=== PATIENT | female | born 1960 | race Caucasian/White ===

== ENCOUNTER 2016-12-04 11:45 | Inpatient (IN) | payer MEDICARE, OTHER ==
--- NOTE | 2016-12-04 12:36 | History and Physical Report ---
History of Present Illnes - History of Present Illness Reason for Visit: gait disturbance s/p TKR History of Present Illness: 56yo white female with end-stage OA requiring a TKR on the left side. Surgery was performed without any intraoperative or post operative complications. patient has been up ambulating with some difficulties with a walker. Patient transferred to this institution for further rehab services. Patient states that her chronic medical problems are stable at this time. - Past Medical History Cardiac: Other (Obesity). denies: AFIB, CAD, CHF COMPUTER MECHANIC: Migraine Gastrointestinal: GERD Heme/Onc: Anemia NOS (postoperative) Psych: Depression Musculoskeletal: Chronic low back pain, Osteoarthritis Rheumatologic: Fibromyalgia Grav: 0 - Past Surgical History Past Surgical History: Cholecystectomy, Total Hip Replacement (left), Total Knee Replacement (bialteral), Tonsillectomy, Other (R carpal tunnel release, R thumb release, Back surgery, Gastric bypass, Bialateral ankle surgery) - Past Social History Smoke: No, Quit (2005) Occupation: Retired nurse. She is , her Sudeep two years ago. Alcohol: Rare Drugs: None Lives: Alone (parents live here in [place]) Domestic Violence: Negative - Health Maintenance Health Maintenance: Cholesterol, Influenza Vaccine, Pneumococcal Vaccine, Pap Smear, Mammogram. denies: Colonoscopy Influenza Vaccine: Current for this Influenza Season Pneumonia Vaccine: Yes Resuscitation Status: FULL CODE Review of Systems - Review of Systems Constitutional: negative: Fever, Chills, Sweats Eyes: negative: pain, vision change ENT: negative: Ear Pain, Ear Discharge, Nose Pain, Nose Discharge, Nose Congestion, Mouth Pain, Throat Pain Respiratory: negative: Cough, Dry, Shortness of Breath, Hemoptysis, SOB with Excertion, Pleuritic Pain Cardiovascular: negative: Chest Pain, Palpitations, Orthopnea Gastrointestinal: Other (last BM yesterday). negative: Nausea, Vomiting, Abdominal Pain, Diarrhea, Constipation, Melena, Hematochezia Genitourinary: negative: Dysuria, Frequency, Incontinence Musculoskeletal: Back Pain. negative: Neck Pain, Shoulder Pain Skin: negative: Rash, Lesions Neurological: negative: Weakness, Numbness, Incoordination, Change in Speech - Medications/Allergies Allergies/Adverse Reactions: Allergies Allergy/AdvReac Type Severity Reaction Status Date / Time carisoprodol [From Soma] Allergy Intermediate Hives Verified 10/01/13 16:50 morphine Allergy Intermediate Hives Verified 10/01/13 16:50 Penicillins Allergy Intermediate Hives Verified 10/01/13 16:50 Home Medications: Home Medications Calcium Citrate [Calcitrate] 200 mg PO TID 12/04/16 [place]-3S/Dha/Epa/Fish Oil [Fish Oil 1,200 mg Softgel] 1 each PO D 12/04/16 Sumatriptan Succinate [Imitrex] 100 mg PO DIRECTED PRN 12/04/16 Exam - Exam General: Alert, Oriented to Person, Oriented to Place, Oriented to Time, Cooperative, No acute distress HEENT: Atraumatic, PERRLA, EOMI, Mouth Mucous membr. moist/[place], Nose Mucous membr. moist/[place], Hearing Grossly Normal Neck: Normal Range of Motion Carotids: WNL Thyroid: WNL Lungs: Clear to auscultation, Normal air movement, Speaks full Sentences Cardiovascular: Regular rate, Normal S1, Normal S2, No murmurs Abdomen: Normal bowel sounds, Soft, No tenderness, No hepatospenomegaly, No masses Integumentary: Normal, [place], Warm, Dry Extremities: No clubbing, No cyanosis, No edema, Normal pulses, No tenderness/ swelling Neurological: Normal gait, Normal speech, Strength Equal Bilat, Normal tone, Sensation intact, Cranial nerves 3-12 NL, Reflexes 2+ Psych/Mental Status: Mental status NL, Mood NL, Appropriate Affect, Intact Judgment Assessment/Plan - Assessment/Plan (1) Gait disturbance Status: Acute Current Visit: Yes Plan: Follow-up apptment with Dr Morin DECEMBER 29 - 1299 (2) S/P TKR (total knee replacement) Status: Acute Current Visit: Yes Assessment: Continue with present pain medications, will try to start to wean off narcotics (3) Migraine headache Status: Chronic Current Visit: Yes Qualifiers: Migraine type: with aura Intractability: not intractable Assessment: continue home med Imitrix (4) Chronic GERD Status: Chronic Current Visit: Yes Assessment: continue with PPI (5) Depression Status: Chronic Current Visit: Yes Qualifiers: Depression Type: reactive depression Qualified Code(s): F32.9 - Major depressive disorder, single episode, unspecified Assessment: Continue with Effexor VTE Assessment - RISK FACTOR SCORE VTE RISK FACTOR SCORES: AGE 40-60 YEARS, ELECTIVE KNEE OR HIP ARTHROPLASTY - RISK VTE MODERATE RISK: SCORE OF 2 (RISK PROXIMAL DVT 2-4%) PROPHYAXIS NEEDED ( Aspirin therapy)
[2016-12-04] MEDS ORDERED: SUMAtriptan SUCCINATE 25 MG TABLET PO PRN (12:44)
[2016-12-04] MEDS ORDERED: MAGNESIUM HYDROXIDE 400 MG/5 ML 30ML UDC PO PRN (12:53)
[2016-12-04] MEDS ORDERED: HYDROcodone /APAP 10/325 1 EACH TABLET PO ONE ×2 (13:00→17:43)
[2016-12-04] MEDS ORDERED: FUROSEMIDE 40 MG TABLET PO PRN (13:00)
[2016-12-04] MEDS: HYDROcodone /APAP 10/325 1 EACH TABLET PO SCH ×2 (13:05→18:09)
[2016-12-04 16:43] VITALS: BMI 47.7
[2016-12-04] MEDS: CYCLOBENZAPRINE HCL 5 MG TABLET PO SCH (20:12)
[2016-12-04] MEDS: ASPIRIN 325 MG TABLET PO SCH (20:12)
[2016-12-04] MEDS: TOPIRAMATE 50 MG TABLET PO SCH (20:12)
[2016-12-04] MEDS: traMADol HCL 50 MG TABLET PO PRN (20:15)
[2016-12-04] MEDS: PREGABALIN 50 MG CAPSULE PO SCH (20:15)
[2016-12-05] MEDS ORDERED: HYDROcodone /APAP 10/325 1 EACH TABLET PO ONE ×2 (00:18→00:39)
[2016-12-05] MEDS: HYDROcodone /APAP 10/325 1 EACH TABLET PO SCH ×2 (00:20→06:15)
[2016-12-05] MEDS ORDERED: VENLAFAXINE HCL 37.5 MG CAP.ER.24H PO ONE (00:38)
[2016-12-05] MEDS: traMADol HCL 50 MG TABLET PO PRN (03:42)
[2016-12-05] MEDS: PANTOPRAZOLE SODIUM 40 MG TABLET PO SCH (06:15)
[2016-12-05] MEDS: oxyCODONE/ACETAMINOPHEN 5/325 TABLET PO SCH ×4 (08:13→20:27)
[2016-12-05] MEDS ORDERED: MULTIVITAMIN 1 EACH TABLET PO SCH (09:00)
[2016-12-05] MEDS ORDERED: VENLAFAXINE HCL 37.5 MG CAP.ER.24H PO SCH (09:00)
[2016-12-05] MEDS: DOCUSATE SODIUM 100 MG CAPSULE PO SCH (09:01)
[2016-12-05] MEDS: ASPIRIN 325 MG TABLET PO SCH ×2 (09:01→20:27)
[2016-12-05] MEDS: VENLAFAXINE HCL 37.5 MG TAB PO SCH (09:04)
[2016-12-05] MEDS: TOPIRAMATE 50 MG TABLET PO SCH ×2 (09:05→20:27)
[2016-12-05] MEDS: PREGABALIN 50 MG CAPSULE PO SCH ×2 (09:05→20:28)
[2016-12-05] MEDS: CALCIUM CARB 500 MG TAB.CHEW PO SCH (09:07)
[2016-12-05] MEDS: CYCLOBENZAPRINE HCL 5 MG TABLET PO SCH (20:27)
[2016-12-06] MEDS ORDERED: VENLAFAXINE HCL 37.5 MG CAP.ER.24H PO ONE (03:49)
[2016-12-06] MEDS: traMADol HCL 50 MG TABLET PO PRN (04:30)
[2016-12-06] MEDS: PANTOPRAZOLE SODIUM 40 MG TABLET PO SCH (06:43)
[2016-12-06] MEDS: oxyCODONE/ACETAMINOPHEN 5/325 TABLET PO SCH ×4 (08:54→20:58)
[2016-12-06] MEDS: TOPIRAMATE 50 MG TABLET PO SCH ×2 (09:17→20:58)
[2016-12-06] MEDS: DOCUSATE SODIUM 100 MG CAPSULE PO SCH (09:17)
[2016-12-06] MEDS: ASPIRIN 325 MG TABLET PO SCH ×2 (09:17→20:57)
[2016-12-06] MEDS: CALCIUM CARB 500 MG TAB.CHEW PO SCH (09:18)
[2016-12-06] MEDS: VENLAFAXINE HCL 37.5 MG TAB PO SCH (09:19)
[2016-12-06] MEDS: PREGABALIN 50 MG CAPSULE PO SCH ×2 (09:20→20:58)
[2016-12-06] MEDS: CYCLOBENZAPRINE HCL 5 MG TABLET PO SCH (20:57)
[2016-12-07] MEDS: traMADol HCL 50 MG TABLET PO PRN ×2 (03:39→11:32)
[2016-12-07] MEDS: PANTOPRAZOLE SODIUM 40 MG TABLET PO SCH (05:28)
[2016-12-07] MEDS: oxyCODONE/ACETAMINOPHEN 5/325 TABLET PO SCH ×4 (08:40→20:47)
[2016-12-07] MEDS: PREGABALIN 50 MG CAPSULE PO SCH ×2 (08:41→20:45)
[2016-12-07] MEDS: DOCUSATE SODIUM 100 MG CAPSULE PO SCH (08:42)
[2016-12-07] MEDS: TOPIRAMATE 50 MG TABLET PO SCH ×2 (08:42→20:46)
[2016-12-07] MEDS: ASPIRIN 325 MG TABLET PO SCH ×2 (08:42→20:44)
[2016-12-07] MEDS ORDERED: VENLAFAXINE HCL 37.5 MG CAP.ER.24H PO ONE (08:43)
[2016-12-07] MEDS: VENLAFAXINE HCL 37.5 MG TAB PO SCH (08:44)
[2016-12-07] MEDS: CALCIUM CARB 500 MG TAB.CHEW PO SCH (08:47)
[2016-12-07] MEDS: CYCLOBENZAPRINE HCL 5 MG TABLET PO SCH (20:45)
[2016-12-08] MEDS: traMADol HCL 50 MG TABLET PO PRN ×2 (01:44→11:56)
[2016-12-08] MEDS: PANTOPRAZOLE SODIUM 40 MG TABLET PO SCH (05:56)
[2016-12-08] MEDS: ASPIRIN 325 MG TABLET PO SCH ×2 (08:25→19:42)
[2016-12-08] MEDS: oxyCODONE/ACETAMINOPHEN 5/325 TABLET PO SCH ×4 (08:25→19:43)
[2016-12-08] MEDS: DOCUSATE SODIUM 100 MG CAPSULE PO SCH (08:25)
[2016-12-08] MEDS: TOPIRAMATE 50 MG TABLET PO SCH ×2 (08:26→19:42)
[2016-12-08] MEDS: CALCIUM CARB 500 MG TAB.CHEW PO SCH (08:27)
[2016-12-08] MEDS ORDERED: VENLAFAXINE HCL 37.5 MG CAP.ER.24H PO ONE (08:29)
[2016-12-08] MEDS: PREGABALIN 50 MG CAPSULE PO SCH ×2 (08:31→19:42)
[2016-12-08] MEDS: VENLAFAXINE HCL 37.5 MG TAB PO SCH (08:32)
--- NOTE | 2016-12-08 13:11 | Inpatient Progress Note ---
Subjective - Required Recertification Statement I anticipate X number of days because-include discharge plan: 7 - Review of Systems Events since last encounter: Radha is doing well. She is participating in therapy and is making progress. She is full weight bearing. She is wearing the polar ice and it is keeping swelling down. General: Denies: Chills HEENT: Denies: Head Aches Pulmonary: Denies: Dyspnea Cardiovascular: Denies: Chest Pain Gastrointestinal: Denies: Nausea, Vomiting Genitourinary: Denies: Dysuria Musculoskeletal: Leg Pain (slowly improving) Neurological: Denies: Confusion Objective - Exam Vitals and I&O: Vital Signs Temp 100.4 F H 12/07/16 21:00 Pulse 105 H 12/07/16 21:00 Resp 22 12/07/16 21:00 BP 147/58 12/07/16 09:00 Pulse Ox 98 12/07/16 21:00 Intake & Output 12/07/16 12/08/16 12/08/16 23:59 11:59 23:59 Intake Total 680 380 Balance 680 380 Intake: Oral 680 380 Other: Voiding Method Toilet # Voids 2 # Bowel Movements 0 General: Alert, Oriented to Person, Oriented to Place, Oriented to Time, Cooperative, Mild distress HEENT: Atraumatic, PERRLA Neck: Supple, No JVD Lungs: Clear to auscultation, Normal air movement, Speaks full Sentences Cardiovascular: Regular rate, Normal S1, Normal S2 Abdomen: Normal bowel sounds, Soft Extremities: Other (left anterior knee incision is well approximated with nilesh) Skin: Normal Neurological: Normal speech. No: Normal gait Psych/Mental Status: Mental status NL, Mood NL, Appropriate Affect Assessment/Plan - Assessment/Plan (1) S/P TKR (total knee replacement) Status: Acute Current Visit: Yes Qualifiers: Laterality: left Qualified Code(s): Z96.652 - Presence of left artificial knee joint Assessment: With routine course of healing Plan: Continue therapy. F/U in two weeks with Dr. Morin, and he would like to take the nilesh out himself
[2016-12-08] MEDS: CYCLOBENZAPRINE HCL 5 MG TABLET PO SCH (19:41)
[2016-12-09] MEDS: traMADol HCL 50 MG TABLET PO PRN ×3 (02:43→18:18)
[2016-12-09] MEDS: PANTOPRAZOLE SODIUM 40 MG TABLET PO SCH (06:11)
[2016-12-09] MEDS: oxyCODONE/ACETAMINOPHEN 5/325 TABLET PO SCH ×4 (08:22→20:43)
[2016-12-09] MEDS: TOPIRAMATE 50 MG TABLET PO SCH ×2 (08:23→20:43)
[2016-12-09] MEDS: ASPIRIN 325 MG TABLET PO SCH ×2 (08:23→20:43)
[2016-12-09] MEDS: DOCUSATE SODIUM 100 MG CAPSULE PO SCH (08:23)
[2016-12-09] MEDS: CALCIUM CARB 500 MG TAB.CHEW PO SCH (08:25)
[2016-12-09] MEDS: PREGABALIN 50 MG CAPSULE PO SCH ×2 (08:28→20:43)
[2016-12-09] MEDS ORDERED: VENLAFAXINE HCL 37.5 MG CAP.ER.24H PO ONE (09:00)
[2016-12-09] MEDS: VENLAFAXINE HCL 37.5 MG TAB PO SCH (09:00)
[2016-12-09] MEDS: CYCLOBENZAPRINE HCL 5 MG TABLET PO SCH (20:43)
[2016-12-10] MEDS: traMADol HCL 50 MG TABLET PO PRN ×2 (02:57→10:44)
[2016-12-10] MEDS: PANTOPRAZOLE SODIUM 40 MG TABLET PO SCH (06:36)
[2016-12-10] MEDS: oxyCODONE/ACETAMINOPHEN 5/325 TABLET PO SCH ×4 (08:08→20:09)
[2016-12-10] MEDS: PREGABALIN 50 MG CAPSULE PO SCH ×2 (08:08→20:08)
[2016-12-10] MEDS: DOCUSATE SODIUM 100 MG CAPSULE PO SCH (08:08)
[2016-12-10] MEDS: TOPIRAMATE 50 MG TABLET PO SCH ×2 (08:08→20:09)
[2016-12-10] MEDS: ASPIRIN 325 MG TABLET PO SCH ×2 (08:08→20:08)
[2016-12-10] MEDS: CALCIUM CARB 500 MG TAB.CHEW PO SCH (08:09)
[2016-12-10] MEDS ORDERED: VENLAFAXINE HCL 37.5 MG CAP.ER.24H PO ONE (08:10)
[2016-12-10] MEDS: VENLAFAXINE HCL 37.5 MG TAB PO SCH (08:11)
[2016-12-10] MEDS: CYCLOBENZAPRINE HCL 5 MG TABLET PO SCH (20:08)
[2016-12-11] MEDS: traMADol HCL 50 MG TABLET PO PRN ×2 (02:50→06:08)
[2016-12-11] MEDS: PANTOPRAZOLE SODIUM 40 MG TABLET PO SCH (06:06)
[2016-12-11] MEDS ORDERED: VENLAFAXINE HCL 37.5 MG CAP.ER.24H PO ONE (08:07)
[2016-12-11] MEDS: ASPIRIN 325 MG TABLET PO SCH ×2 (08:42→21:07)
[2016-12-11] MEDS: oxyCODONE/ACETAMINOPHEN 5/325 TABLET PO SCH ×4 (08:43→21:09)
[2016-12-11] MEDS: PREGABALIN 50 MG CAPSULE PO SCH ×2 (08:43→21:07)
[2016-12-11] MEDS: TOPIRAMATE 50 MG TABLET PO SCH ×2 (08:43→21:08)
[2016-12-11] MEDS: VENLAFAXINE HCL 37.5 MG TAB PO SCH (08:43)
[2016-12-11] MEDS: DOCUSATE SODIUM 100 MG CAPSULE PO SCH (08:43)
[2016-12-11] MEDS: CALCIUM CARB 500 MG TAB.CHEW PO SCH (08:44)
[2016-12-11] MEDS: CYCLOBENZAPRINE HCL 5 MG TABLET PO SCH (21:07)
[2016-12-12] MEDS: traMADol HCL 50 MG TABLET PO PRN (02:20)
[2016-12-12] MEDS: PANTOPRAZOLE SODIUM 40 MG TABLET PO SCH (05:48)
[2016-12-12] MEDS: ASPIRIN 325 MG TABLET PO SCH (08:18)
[2016-12-12] MEDS: DOCUSATE SODIUM 100 MG CAPSULE PO SCH (08:18)
[2016-12-12] MEDS: PREGABALIN 50 MG CAPSULE PO SCH (08:19)
[2016-12-12] MEDS: oxyCODONE/ACETAMINOPHEN 5/325 TABLET PO SCH ×2 (08:19→12:46)
[2016-12-12] MEDS: CALCIUM CARB 500 MG TAB.CHEW PO SCH (08:20)
[2016-12-12] MEDS: TOPIRAMATE 50 MG TABLET PO SCH (08:20)
[2016-12-12] MEDS ORDERED: VENLAFAXINE HCL 37.5 MG CAP.ER.24H PO ONE (08:22)
[2016-12-12] MEDS: VENLAFAXINE HCL 37.5 MG TAB PO SCH (08:24)
[2016-12-12 13:54] VITALS: BP 140/78
--- NOTE | 2016-12-13 12:04 | Discharge Summary ---
DATE OF ADMISSION: December 04, 2016 DATE OF DISCHARGE: December 12, 2016 DIAGNOSES ON THIS HOSPITALIZATION: 1. Total knee replacement. 2. Obesity. 3. Gait disturbance. 4. Chronic gastroesophageal reflux disease. 5. Depression. SUMMARIZATION OF ADMISSION HISTORY AND PHYSICAL: This is a 56-year-old white female with end-stage osteoarthritis requiring a left total knee replacement and surgery was performed in [place] without any complications. She came to our facility for rehab services. HOSPITAL COURSE: She was admitted. She did remarkably well with therapy. She was discharged to home then with continuation of all of her home medications. CONDITION ON DISCHARGE: Discharged to home in improved condition. DISCHARGE INSTRUCTIONS: Follow up with Orthopedics as previously scheduled. ELVIRA
[2016-12-19] MEDS ORDERED: ASPIRIN 325 MG TABLET PO SCH (09:00)
== END 2016-12-12 13:45 | disposition home or self-care (01) | DRG 93 ==
LOC: SOUTH 11:45
PROVIDERS: ADMIT Family Medicine; ATTEND Family Medicine
DX: R26.9 Unspecified abnormalities of gait and mobility (principal); Z96.652 Presence of left artificial knee joint; E66.9 Obesity, unspecified; K21.9 Gastro-esophageal reflux disease without esophagitis; F32.9 Major depressive disorder, single episode, unspecified
CPT/HCPCS: 97110; 97116; 97161; 97165; 97530; 97535; A9270; J3490

== ENCOUNTER 2018-08-09 10:33 | Outpatient (CLI) | payer MEDICARE, OTHER ==
[2018-08-09 11:29] LABS: MEAN CORPUSCULAR HEMOGLOBIN 25.9 pg (28.0-34.0)
[2018-08-09 11:30] LABS: BASOPHILS % 0.2 (0.0-1.5); EOSINOPHILS % 2.4 % (0.0-6.8); MONOCYTES % 7.9 % (0.0-11.0); NEUTROPHILS # 4.8 # k/uL (1.4-7.7)
[2018-08-09 11:54] LABS: eGFR (Non-African) > 60
== END 2018-08-09 10:35 ==
LOC: LAB 10:33
PROVIDERS: ATTEND Family Medicine
DX: M81.0 Age-related osteoporosis without current pathological fracture (principal); E55.9 Vitamin D deficiency, unspecified; R26.9 Unspecified abnormalities of gait and mobility; K90.89 Other intestinal malabsorption; Z51.81 Encounter for therapeutic drug level monitoring
CPT/HCPCS: 36415; 80053; 80061; 82306; 85025

== ENCOUNTER 2018-09-27 13:20 | Outpatient (CLI) | payer MEDICARE, OTHER ==
--- NOTE | 2018-09-27 14:10 | Diagnostic Imaging Report ---
NEISHA BOO [facility] [address] [facility].[address] [address] Report Submission Date: Sep 27, 2018 2:02:20 PM COATING ENGINEER Patient Study Name: LEANDRA FRANK Date: Sep 27, 2018 1:27:26 PM COATING ENGINEER Modality Type: DX Gender: F Description: RT HIP 2VIEW COMPLETE : 58 Institution: [facility] Physician: NEISHA BOO Examination: Plain film pelvis/right hip History: Recent fall, pt states right pain, ischium pain, previous bi lat hip replacements and lumbar lami Comparison exams: None provided Findings: 3 views of the pelvis and right hip demonstrates bilateral hip replacement. Generalized osteopenia. No fracture no dislocation. Lumbar spine fixation hardware and degenerative changes. No gross soft tissue abnormality. Impression: Bilateral hip and lumbar postsurgical changes. Osteopenia and degenerative changes. No displaced fracture lucency. Electronically signed on Sep 27, 2018 2:02:20 PM COATING ENGINEER by: Joshua FELIX
== END 2018-09-27 13:22 ==
LOC: RAD 13:20
PROVIDERS: ATTEND Nurse Practitioner Family
DX: M25.551 Pain in right hip (principal); W19.XXXA Unspecified fall, initial encounter; M85.851 Other specified disorders of bone density and structure, right thigh
CPT/HCPCS: 73502

== ENCOUNTER 2018-10-09 07:56 | Day surgery (SDC) | payer OTHER ==
[2018-10-09] MEDS ORDERED: LACTATED RINGERS 1,000 ML IV.SOLN IV ONE (08:48)
[2018-10-09] MEDS ORDERED: PROPOFOL 200 MG/20 ML VIAL IV ONE (08:48)
--- NOTE | 2018-10-09 13:40 | GI Report ---
REFERRING PHYSICIAN: FIDELIA Lo NEWS LIBRARIAN: Nacho Sheehan MD PROCEDURE MEDICATION: Propofol as per anesthesia. INDICATIONS: Patient is a 58-year-old woman who is referred for her first colonoscopy from Dr. Graf's office. She has never had a previous colonoscopy. She does have a number of medical issues. She has had gastric bypass 5 years ago. She, at present, weighs 248 pounds and carries all that weight centrally. PROCEDURE PERFORMED: Colonoscopy. PROCEDURE: An Olympus video colonoscope was advanced to the rectum. Prep was fair. A very atonic redundant colon. It took 2 nurse compression and putting a biopsy forceps to help stiffen the scope, and multiple reduction of loops to finally reach the cecum. On slow withdrawal, the cecum, ascending colon, and transverse colon with no obvious intraluminal lesions noted, though a very atonic redundant colon. The descending colon and sigmoid, again, very atonic and redundant. No obvious intraluminal lesions noted. Retroflexion of the rectum was normal. Patient tolerated the procedure well. FINDINGS: A very atonic redundant colon. RECOMMENDATIONS: 1. Would add Benefiber daily and increase fiber in her diet. 2. She can take MiraLAX daily if needed. 3. Consider re-looking at her colon in 10 years, sooner if clinically indicated. cc: FIDELIA Lo [facility]
== END 2018-10-09 11:40 | disposition home or self-care (01) ==
LOC: OPSURG 07:56
PROVIDERS: ATTEND Internal Medicine Gastroenterology
DX: Z12.11 Encounter for screening for malignant neoplasm of colon (principal); K59.8 Other specified functional intestinal disorders
CPT/HCPCS: G0121; J2704; J7120; S1016

== ENCOUNTER 2018-11-14 15:47 | Outpatient (CLI) | payer OTHER ==
--- NOTE | 2018-11-14 16:27 | Diagnostic Imaging Report ---
TERRIE GAGNON [facility] [address] [facility] [address] [address] Report Submission Date: Nov 14, 2018 4:26:01 PM CDT Patient Study Name: LEANDRA FRANK Date: Nov 14, 2018 3:51:48 PM CDT Modality Type: DX Gender: F Description: FOOT 3 VIEWS OR MORE : 58 Institution: [facility] Physician: TERRIE GAGNON EXAMINATION: FOOT 3 VIEWS OR MORE HISTORY: LATERAL LEFT FOOT PAIN X 1 MONTH. NKI. (Hx) COMPARISON: None FINDINGS: No acute fracture or dislocation is identified. The bones are diffusely demineralized. Calcaneal spurs are noted. There is advanced midfoot osteoarthritis, particularly involving the talonavicular joint. The navicular bone appears somewhat collapsed. IMPRESSION: 1. Advanced midfoot osteoarthritis without acute fracture or dislocation identified. 2. Calcaneal spurs. Electronically signed on Nov 14, 2018 4:26:01 PM CDT by: Isai FELIX
== END 2018-11-14 15:50 ==
LOC: LAB 15:47
PROVIDERS: ATTEND Family Medicine
DX: M19.072 Primary osteoarthritis, left ankle and foot (principal); M77.32 Calcaneal spur, left foot; M79.672 Pain in left foot
CPT/HCPCS: 73630

== ENCOUNTER 2018-12-14 12:57 | Outpatient (CLI) | payer OTHER ==
--- NOTE | 2018-12-19 21:42 | OP Clinic Progress Note ---
SUBJECTIVE: Radha Laguerre is a 58-year-old female presenting today for a planned left subtalar joint steroid injection. She has a long history of pretty severe arthritis in her subtalar joint and talonavicular joint. The patient had notable pain in the subtalar joint upon exam when seen in clinic earlier this week. She is also dealing with a peroneus brevis tendinitis for which x-rays were reviewed today saying that she was negative with respect to any sort of fracture in the base of the fifth metatarsal, left foot. The patient understands that she needs to be in her boot but she says she tried and she is unable to tolerate the boot as it causes too much pain where the bar comes up right next to her left fifth metatarsal area. The patient is using an ankle brace, however, and we will see if this is helping over the next few weeks. If this is not helping we may need to consider a different type of boot or MRI. The patient does not admit to any fevers, chills, nausea, vomiting, shortness of breath or chest pain at this time. She has had triple arthrodesis done on her right foot and understands that she will likely need some sort of arthrodesis procedure for her subtalar joint and talonavicular joint in the future due to the amount of pain she is having. OBJECTIVE: Vitals: Temperature 98.0 degrees Fahrenheit, heart rate 70, respiration rate 16, blood pressure 124/56. O2 saturation is 99% on room air. Vascular: Palpable pulses, left foot. Capillary refill time is less than 3 seconds to the toes of the left foot. No edema, left foot. Dermatologic: There is no ecchymosis, erythema or open lesions noted on the left foot. There are no hyperkeratoses noted on the left foot. Musculoskeletal: There is significant pain on palpation noted at the left talonavicular joint, dorsomedially as well as at the subtalar joint in the anterolateral area near the sinus tarsi. The patient has a prominent large osseous exostosis/deformity noted at the anteromedial ankle/proximal medial foot near the talonavicular joint. The patient has pain with range of motion of the subtalar joint as well noted from her last visit. Neurologic: Light touch sensation is intact to the toes, left foot. ASSESSMENT AND PLAN: 1. Left foot pain; M79.672. 2. Arthritis of the left subtalar joint; M19.072. 3. Arthritis of the left foot; M19.072. 4. Tendinitis of the left peroneus brevis tendon; M76.72. We discussed the importance of wearing the boot which she cannot do and therefore we will let her try her ankle brace at this time. She states a bar is pushing on that left fifth metatarsal base. I wonder if maybe the boot is just not a good boot. We will consider a new boot upon her next visit that may not have the pressure there that she is discussing. We need to immobilize that peroneus brevis tendon. If the patient is not doing better in 4 weeks with regards to the left fifth metatarsal base we will consider an MRI as well at that time versus just switching to a different type of boot. The patient will use an ankle brace as well as surgical shoe at this time otherwise. The risks and benefits of a steroid injection to the subtalar joint left foot was discussed today and consent was given verbally and by written consent and it was placed in the chart. Bleeding, infection among other risks were discussed with the patient today. PROCEDURE #1: Steroid injection left subtalar joint was performed today. An alcohol swab was utilized to cleanse the area of the injection and a cold sprayer was used to numb the skin and an injection consisting of 1 mL of 2% lidocaine plain and 1 mL of 0.5% Marcaine plain, 0.5 mL of dexamethasone 4 mg/mL and 0.5 mL of Kenalog 40 mg/mL were injected (generic) into that subtalar joint. The patient tolerated the procedure well. A Band-Aid was applied after pressure was given creating good hemostasis. Return to the clinic for follow-up office visit in 4 weeks. See above. Yael PinedoPBatool. (Dictated/Not Signed) Nikki Job#: [id number] MTDD
== END 2018-12-14 13:00 ==
LOC: POD 12:57
PROVIDERS: ATTEND Podiatrist Foot & Ankle Surgery
DX: M19.072 Primary osteoarthritis, left ankle and foot (principal); M76.72 Peroneal tendinitis, left leg
CPT/HCPCS: 99213; A4554; J2001; J3490

== ENCOUNTER 2019-02-13 16:35 | Outpatient (CLI) | payer OTHER | END 2019-02-13 16:36 | LOC: LAB 16:35 | PROVIDERS: ATTEND Clinical Nurse Specialist Medical-Surgical | DX: M81.0 Age-related osteoporosis without current pathological fracture (principal); E55.9 Vitamin D deficiency, unspecified; R26.9 Unspecified abnormalities of gait and mobility; K90.89 Other intestinal malabsorption | CPT/HCPCS: 36415; 82306; 82310 ==